=== PATIENT | female | born 1940 | race Caucasian/White ===

== ENCOUNTER 2017-04-07 12:18 | Inpatient (IN) | payer MEDICARE ==
[~2017-04-07] VITALS: Ht 160 cm; Wt 68.9 kg
--- NOTE | 2017-04-07 12:25 | NUR ---
AAOX3, BBRA FROM HOME FOR BILATERAL HIP/LEG PAIN S/P FALL WHILE TRYING TO TRANSFER SELF FROM BED TO WHEELCHAIR, H/O BONE CA. MORPHINE 12MG GIVEN BY EMS. SKIN IS WARM AND DRY. PLACED ON THE MONITOR. DR SOSA AT FOR EVAL.
[2017-04-07] MEDS ORDERED: HYDROMORPHONE 1 MG/1 ML DISP.SYRIN IV ONE (13:30)
[2017-04-07] MEDS ORDERED: HYDROMORPHONE 1 MG/1 ML DISP.SYRIN ONE ×2 (13:36→15:32)
--- NOTE | 2017-04-07 13:49 | NUR ---
CALLED KIMBERLY KEREN TARANGO WAS PAGED.
[2017-04-07 13:55] LABS: BASOPHILS % (AUTO) 0.2 % (0.0-2.0); EOSINOPHILS % (AUTO) 0.4 % (0.0-6.0); HEMATOCRIT 39 % (33-45); HEMOGLOBIN 13.3 g/dL (11.5-14.8); LYMPHOCYTES # (AUTO) 1.1 /CMM (0.8-4.8); LYMPHOCYTES % (AUTO) 9.3 % (20.0-44.0); MEAN CORPUSCULAR HEMOGLOBIN 28 PG (26.0-33.0); MEAN CORPUSCULAR HGB CONC 34 g/dl (31.0-36.0); MEAN CORPUSCULAR VOLUME 81 fL (82-100); MONOCYTES # (AUTO) 0.7 /CMM (0.1-1.30); NEUTROPHILS # (AUTO) 10.2 /CMM (1.8-8.9); NEUTROPHILS % (AUTO) 84.1 % (43.0-81.0); PLATELET COUNT (AUTO) 320 /CMM (150-450); RDW COEFFICIENT OF VARIATION 13.8 (11.5-15.0); RED BLOOD CELL COUNT(AUTO) 4.82 MIL/uL (4.0-5.2); WHITE BLOOD COUNT (AUTO) 12.1 K/uL (4.3-11.0)
--- NOTE | 2017-04-07 14:05 | NUR ---
CALLED KENMARE KEREN TARANGO WAS REPAGED.
[2017-04-07 14:07] LABS: CALCIUM, SERUM 10.2 mg/dL (8.5-10.1); CARBON DIOXIDE 25 mmol/L (21-32); CHLORIDE 99 mmol/L (98-107); CREATININE 0.9 mg/dL (0.6-1.3); GLUCOSE 132 mg/dL (74-106); POTASSIUM 3.6 mmol/L (3.5-5.1); SODIUM SERUM 135 mmol/L (136-145); UREA NITROGEN, BLOOD 19 mg/dL (7-18)
[2017-04-07 14:13] LABS: ALANINE AMINOTRANSFERASE 45 U/L (12-78); ALKALINE PHOSPHATASE 119 U/L (46-116); ASPARTATE AMINOTRANSFERASE 30 U/L (15-37); BILIRUBIN,DIRECT 0.1 mg/dL (0.0-0.2); BILIRUBIN,TOTAL 0.4 mg/dL (0.2-1.0); INR 0.96 (0.85-1.15); TOTAL PROTEIN, SERUM 7.9 g/dL (6.4-8.2)
[2017-04-07] MEDS ORDERED: SIMV20TA6 PO (14:17)
[2017-04-07] MEDS ORDERED: OXYC10TA49 PO (14:17)
[2017-04-07] MEDS ORDERED: GABA-532 PO (14:17)
[2017-04-07] MEDS ORDERED: MEGE400O4 PO (14:17)
[2017-04-07] MEDS ORDERED: DOCU100C36 PO (14:17)
[2017-04-07] MEDS ORDERED: FOLI1TAB16 PO (14:17)
[2017-04-07] MEDS ORDERED: TRIA1CAP6 PO (14:17)
[2017-04-07] MEDS ORDERED: SERT50TA PO (14:17)
--- NOTE | 2017-04-07 14:35 | NUR ---
CALLED Palette SOCK KNITTING MACHINE OPERATOR WAS PAGED.
[2017-04-07] MEDS ORDERED: HYDROMORPHONE INJ 0.5 MG/0.5 ML SYRINGE IV PRN (15:00)
--- NOTE | 2017-04-07 15:03 | NUR ---
PAGED CIVIL ENGINEERING INTERN ORTHO
--- NOTE | 2017-04-07 15:46 | NUR ---
REPORT GIVEN TO MAI FINN FOR ARLENE MS [id number]
[2017-04-07 16:00] VITALS: BP 157/97
--- NOTE | 2017-04-07 16:05 | NUR ---
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 A/O X4, APPEARS IN A LOT OF PAIN, UNABLE TO DO FULL BODY ASSESSMENT DUE TO PAIN. RLE SWELLING, LEFT HAND G20 PATENT AND INTACT, FLUSHES WELL. PLACE CALL LIGHT WITHIN REACH. NOTIFIED DR. CRYSTAL FERRARA. WILL MEDICATE PATIENT FOR PAIN.
[2017-04-07 16:15] VITALS: BP 157/97
[2017-04-07] MEDS ORDERED: IV NS 0.9% 1,000 ML IV PRN (16:23)
[2017-04-07] MEDS ORDERED: MAGNESIUM HYDROXIDE 30 ML UDC PO PRN (16:30)
[2017-04-07] MEDS ORDERED: ONDANSETRON HCL/PF 4 MG/2 ML VIAL IVP PRN (16:30)
[2017-04-07] MEDS ORDERED: Z GUARD REMEDY 2 OZ OINT TP PRN (16:30)
[2017-04-07] MEDS ORDERED: ZOLPIDEM TARTRATE 5 MG TABLET PO PRN (16:30)
[2017-04-07] MEDS ORDERED: ACETAMINOPHEN 325 MG TABLET PO PRN (16:30)
[2017-04-07] MEDS ORDERED: MAG HYDROX/AL HYDROX/SIMETH 30 ML UDC PO PRN (16:30)
[2017-04-07] MEDS ORDERED: HYDROCODONE/APAP 10/325MG 1 EA TABLET PO PRN (16:30)
[2017-04-07] MEDS: MORPHINE SULFATE INJ 4 MG/ML DISP.SYRIN IV PRN ×3 (16:47→22:30)
[2017-04-07] MEDS ORDERED: ENOXAPARIN SODIUM 40 MG/0.4 ML DISP.SYRIN SQ SCH (17:00)
[2017-04-07] MEDS: DOCUSATE SODIUM 100 MG CAPSULE PO SCH (17:24)
[2017-04-07] MEDS: MEGESTROL ACETATE SUSP 400 MG/10 ML UDC PO SCH (17:24)
[2017-04-07] MEDS: GABAPENTIN 100 MG CAPSULE PO SCH (17:24)
--- NOTE | 2017-04-07 18:30 | NUR ---
RECEIVED PHONE CALL FROM KEITH ORDERED TO PLACE PATIENT ON NPO MIDNIGHT AND CLEAR SURGERY FOR THE PROCEDURE IN AM SURGERY ORIF BILATERAL FEMUR FRACTURE. INFORMED PATIENT.
--- NOTE | 2017-04-07 19:28 | NUR ---
MS RN CLOSING NOTES PATIENT IN BED, A/O X4, ABLE TO SIT UPRIGHT FOR DINNER, TOLERATING SITTING POSITION AT THIS TIME. IVC IN RIGHT HAND G22 PATENT AND INTACT, IVF NS INFUSING AT 75ML/HR, ON OXYGEN AT 2L VIA NC, NO SOB. CALL LIGHT WITHIN REACH. PATIENT TO HAVE SURGERY IN AM-ORIF BILATERAL FEMUR FX, NPO MIDNIGHT, INFORMED PATIENT. EMERSON CATH INSERTION, PATIENT VERBALIZED UNDERSTANDING. WILL ENDORSE TO ONCOMING SHIFT RN.
--- NOTE | 2017-04-07 19:30 | NUR ---
RN OPENING NOTES PATIENT IS IN BED, ALERT AND ORIENTED X4. VS STABLE. NO SOB NOTED. RESPIRATIONS EVEN AND UNLABORED. PATIENT C/O PAIN 8/. IVC IN RIGHT HAND G22 PATENT AND INTACT, IVF NS INFUSING AT 75ML/HR, NO REDNESS OR INFILTRATION NOTED. ON OXYGEN AT 2L VIA NC. BED IN LOW AND LOCKED POSITION. CALL LIGHT WITHIN REACH. PATIENT TO HAVE SURGERY IN AM-ORIF BILATERAL FEMUR FX, NPO MIDNIGHT, INFORMED PATIENT. EMERSON CATH INSERTION. WILL CONTINUE TO MONITOR AND ASSESS DURING THE SHIFT.
[2017-04-07 20:00] VITALS: BP 118/80
[2017-04-07 20:32] VITALS: BP 118/80
[2017-04-07] MEDS ORDERED: SIMVASTATIN 20 MG TABLET PO SCH (22:00)
[2017-04-08] VITALS (7 sets, daily range): BP systolic 120–142; BP diastolic 63–74
[2017-04-08] MEDS: MORPHINE SULFATE INJ 4 MG/ML DISP.SYRIN IV PRN ×2 (01:45→04:48)
--- NOTE | 2017-04-08 07:10 | NUR ---
MS/RN CLOSING NOTE PATIENT IN BED AWAKE. ALERT AND ORIENTED X4. RESPIRATION REGULAR AND UNLABORED. DENIES SOB, PAIN AT THIS TIME. RIGHT HAND G22 PATENT AND INTACT. NPO SINCE MIDNIGHT. BED LOW AND LOCKED. SIDE RAIL UP X3. CALL LIGHT WITHIN REACH. WILL CONTINUE TO MONITOR.
--- NOTE | 2017-04-08 07:15 | NUR ---
RN CLOSING NOTES PATIENT IS IN BED, ALERT AND ORIENTED X4. VS STABLE. NO SOB NOTED. RESPIRATIONS EVEN AND UNLABORED. IVC IN RIGHT HAND G22 PATENT AND INTACT, IVF NS INFUSING AT 75ML/HR, NO REDNESS OR INFILTRATION NOTED. ON OXYGEN AT 2L VIA NC. EMERSON CATHETER IS IN PLACE, DRAINING CLEAR AND YELLOW URINE. PATIENT IS NPO SINCE MIDNIGHT DUE TO SURGERY ORIF. CONSENT SIGNED. ALL NEEDS ARE MET AND MEDICATIONS GIVEN PER MD ORDER. BED IN LOW AND LOCKED POSITION. CALL LIGHT WITHIN REACH. WILL ENDORSE TO RN DAY SHIFT FOR ARLENE.
[2017-04-08] MEDS ORDERED: MORPHINE SULFATE INJ 4 MG/ML DISP.SYRIN IM PRN (07:30)
[2017-04-08 08:45] LABS: BASOPHILS % (AUTO) 0.1 % (0.0-2.0); EOSINOPHILS % (AUTO) 0.1 % (0.0-6.0); HEMATOCRIT 34 % (33-45); HEMOGLOBIN 11.6 g/dL (11.5-14.8); LYMPHOCYTES # (AUTO) 0.8 /CMM (0.8-4.8); LYMPHOCYTES % (AUTO) 9.2 % (20.0-44.0); MEAN CORPUSCULAR HEMOGLOBIN 28 PG (26.0-33.0); MEAN CORPUSCULAR HGB CONC 34 g/dl (31.0-36.0); MEAN CORPUSCULAR VOLUME 82 fL (82-100); MONOCYTES # (AUTO) 0.6 /CMM (0.1-1.30); MONOCYTES % (AUTO) 6.5 % (2.0-12.0); NEUTROPHILS # (AUTO) 7.3 /CMM (1.8-8.9); NEUTROPHILS % (AUTO) 84.1 % (43.0-81.0); PLATELET COUNT (AUTO) 260 /CMM (150-450); RED BLOOD CELL COUNT(AUTO) 4.14 MIL/uL (4.0-5.2); WHITE BLOOD COUNT (AUTO) 8.7 K/uL (4.3-11.0)
[2017-04-08] MEDS: GABAPENTIN 100 MG CAPSULE PO SCH ×2 (09:00→17:43)
[2017-04-08] MEDS: DOCUSATE SODIUM 100 MG CAPSULE PO SCH (09:00)
[2017-04-08] MEDS ORDERED: TRIAMTERENE/HYDROCHLOROTHIAZID (37.5/25MG) 1 UDCAP PO SCH (09:00)
[2017-04-08] MEDS: SERTRALINE HCL 50 MG TABLET PO SCH (09:00)
[2017-04-08] MEDS: FOLIC ACID 1 MG TABLET PO SCH (09:00)
[2017-04-08] MEDS: MEGESTROL ACETATE SUSP 400 MG/10 ML UDC PO SCH ×2 (09:00→17:43)
[2017-04-08 09:01] LABS: CALCIUM, SERUM 9.3 mg/dL (8.5-10.1); CARBON DIOXIDE 25 mmol/L (21-32); CHLORIDE 101 mmol/L (98-107); CREATININE 0.6 mg/dL (0.6-1.3); GLUCOSE 109 mg/dL (74-106); MAGNESIUM 1.7 mg/dL (1.8-2.4); PHOSPHORUS 4.2 mg/dL (2.5-4.9); POTASSIUM 3.4 mmol/L (3.5-5.1); SODIUM SERUM 139 mmol/L (136-145); UREA NITROGEN, BLOOD 14 mg/dL (7-18)
[2017-04-08 09:12] LABS: CHOLESTEROL 139 mg/dL (<200); HDL CHOLESTEROL 53 mg/dL (40-60); LDL 74 mg/dL (0-99); THYROID STIMULATING HORMONE 1.758 uIU/mL (0.358-3.74); TRIGLYCERIDES 54 mg/dL (30-150)
[2017-04-08] MEDS: Potassium Chloride 20 MEQ in IV NS 0.9% 1,000 ML IV SCH ×2 (09:46→14:03)
[2017-04-08] MEDS ORDERED: BACITRACIN 50000 UNITS/VIAL ONE ×2 (10:20→12:49)
[2017-04-08] MEDS ORDERED: ROCURONIUM BROMIDE 50 MG/5 ML ONE (10:42)
[2017-04-08] MEDS ORDERED: SUCCINYLCHOLINE CHLORIDE 20 MG/ML VIAL ONE (10:42)
[2017-04-08] MEDS ORDERED: FENTANYL PF 100MCG/2ML AMPUL ONE (10:42)
[2017-04-08] MEDS ORDERED: HYDROMORPHONE INJ 0.5 MG/0.5 ML SYRINGE IV PRN (11:30)
[2017-04-08] MEDS ORDERED: DOCUSATE SODIUM 250 MG CAPSULE PO PRN (15:00)
[2017-04-08] MEDS ORDERED: SENNOSIDES 8.6 MG TABLET PO PRN (15:00)
[2017-04-08] MEDS ORDERED: HYDROCODONE/APAP 5/325MG 1 EACH TABLET PO PRN (15:00)
--- NOTE | 2017-04-08 15:30 | NUR ---
MS/RN NOTE THE PATIENT IS BACK FROM OR IN STABLE CONDITION. S/P ORIF BOTH FEMOR. RESPIRATION REGULAR AND UNLABORED. DENIES SOB, PAIN. IN NO APPARENT DISTRESS. THE DRESSING INTACT. PEDAL PULSES PRESENT. BED LOW AND LOCKED. SIDE RAILS UP X3. CALL LIGHT WITHIN REACH. WILL CONTINUE TO MONITOR.
--- NOTE | 2017-04-08 19:20 | NUR ---
MS/RN NOTES RECEIVED PT. LYING IN BED. AWAKE, ALERT AND ORIENTED X 3-4. BREATHING EVEN AND UNLABORED ON 2LPM O2 VIA NC. NO SOB, RESPIRATORY DISTRESS OR COMPLAINTS OF PAIN NOTED AT THIS TIME. PT. WITH LEFT FOREARM 22 GAUGE PERIPHERAL IV PRESENT, PATENT AND INTACT. PT. WITH EMERSON CATHETER PRESENT, PATENT AND INTACT DRAINING CLEAR YELLOW URINE. PT. WITH BILATERAL LOWER EXTREMITY POST OP DRESSINGS PRESENT, CLEAN, DRY AND INTACT. BED LOCKED AND IN LOWEST POSITION, SIDE RAILS UP X3, BED ALARM ON, CALL LIGHT WITHIN REACH, WILL CONTINUE TO MONITOR.
--- NOTE | 2017-04-08 19:30 | NUR ---
MS/RN CLOSING NOTE PATIENT IN BED AWAKE. A/O X4. DENIES SOB, DENIES PAIN. BREATHING EVEN AND UNLABORED. LEFT FOREARM G22 PATENT AND INTACT. IV INFUSING WITH NO S/S INFILTRATION. THE PATIENT IN STABLE CONDITION. BED LOW AND LOCKED SIDE RAILS UP X3. CALL LIGHT WITHIN REACH. WILL ENDORSE TO NIGH SHIFT.
[2017-04-08] MEDS: ANCEF 1 GM/50 ML D5W IV SCH ×2 (20:42)
--- NOTE | 2017-04-08 21:10 | NUR ---
MS/RN NOTES GAVE REPORT TO MAI MCCLAIN. TRANSPORTED PT. TO ROOM 205-2 VIA RNEY. PT. VITAL SIGNS STABLE. PT. HAS BAG OF MEDICATIONS PRESENT AT BEDSIDE AND PT. STATED SHE WILL HAVE HER FAMILY BRING THE MEDICATIONS HOME WITH THEM TOMORROW. SHE DOES NOT WANT THE MEDICATIONS TO BE PLACED IN THE PHARMACY. PT. IS LYING IN BED. AWAKE, ALERT AND ORIENTED X 3. BREATHING EVEN AND UNLABORED ON 2LPM O2 VIA NC. NO SOB, RESPIRATORY DISTRESS OR COMPLAINTS OF PAIN NOTED AT THIS TIME. PT. WITH LEFT FOREARM 22 GAUGE PERIPHERAL IV PRESENT, PATENT AND INTACT. PT. WITH EMERSON CATHETER PRESENT, PATENT AND INTACT DRAINING CLEAR YELLOW URINE. PT. WITH BILATERAL LOWER EXTREMITY POST OP DRESSINGS PRESENT, CLEAN, DRY AND INTACT. BED LOCKED AND IN LOWEST POSITION, SIDE RAILS UP X3, BED ALARM ON, CALL LIGHT WITHIN REACH, WILL ENDORSE TO MAI MCCLAIN FOR CONTINUITY OF CARE.
--- NOTE | 2017-04-08 21:15 | NUR ---
RN NOTES RECEIVED PT. FROM ANOTHER NURSE, A/OX3 WITH PERIOD OF CONFUSION, S/P BILATERAL ORIF, DRESSING DRY AND INTACT, F/C DRAINING TEA COLORED URINE, DENIES PAIN, NO SOB, CALL LIGHT WITHIN REACH, SIDERAILSUPX2, WILL CONTINUE TO MONITOR
[2017-04-09] MEDS: IV LR 1000 ML 1,000 ML IV PRN ×2 (01:19→17:16)
[2017-04-09] MEDS: ANCEF 1 GM/50 ML D5W IV SCH ×2 (03:38)
[2017-04-09 06:53] VITALS: BP 144/73
[2017-04-09 06:54] LABS: BASOPHILS % (AUTO) 0.3 % (0.0-2.0); EOSINOPHILS % (AUTO) 0.1 % (0.0-6.0); HEMATOCRIT 27 % (33-45); HEMOGLOBIN 9.1 g/dL (11.5-14.8); LYMPHOCYTES # (AUTO) 0.8 /CMM (0.8-4.8); LYMPHOCYTES % (AUTO) 10.7 % (20.0-44.0); MEAN CORPUSCULAR HEMOGLOBIN 28 PG (26.0-33.0); MEAN CORPUSCULAR HGB CONC 34 g/dl (31.0-36.0); MEAN CORPUSCULAR VOLUME 83 fL (82-100); MONOCYTES # (AUTO) 0.5 /CMM (0.1-1.30); NEUTROPHILS # (AUTO) 6.3 /CMM (1.8-8.9); NEUTROPHILS % (AUTO) 81.9 % (43.0-81.0); PLATELET COUNT (AUTO) 233 /CMM (150-450); RED BLOOD CELL COUNT(AUTO) 3.25 MIL/uL (4.0-5.2); WHITE BLOOD COUNT (AUTO) 7.7 K/uL (4.3-11.0)
--- NOTE | 2017-04-09 06:56 | NUR ---
RN NOTES SLEEPING BUT AROUSABLE, DRESSING DRY AND INTACT, CALL LIGHT WITHIN REACH, SIDERAILSUPX2 MORNING CARE RENDERED, PT. NEEDS ATTENDED
[2017-04-09 07:14] LABS: ALANINE AMINOTRANSFERASE 32 U/L (12-78); ALBUMIN 1.9 g/dL (3.4-5.0); ALKALINE PHOSPHATASE 71 U/L (46-116); ASPARTATE AMINOTRANSFERASE 40 U/L (15-37); BILIRUBIN,TOTAL 0.4 mg/dL (0.2-1.0); CALCIUM, SERUM 8.3 mg/dL (8.5-10.1); CARBON DIOXIDE 23 mmol/L (21-32); CHLORIDE 106 mmol/L (98-107); CREATININE 0.7 mg/dL (0.6-1.3); GLUCOSE 131 mg/dL (74-106); MAGNESIUM 1.6 mg/dL (1.8-2.4); PHOSPHORUS 2.9 mg/dL (2.5-4.9); POTASSIUM 3.4 mmol/L (3.5-5.1); SODIUM SERUM 137 mmol/L (136-145); TOTAL PROTEIN, SERUM 5.7 g/dL (6.4-8.2); UREA NITROGEN, BLOOD 13 mg/dL (7-18)
--- NOTE | 2017-04-09 08:00 | NUR ---
M/S RN - AM Assessment Patient awake, A/O x 4, reports moderate pain to op site, [place] given as ordered with relief, remain afebrile. Skin is intact except for bilateral hip/leg surgical incision S/P bilateral femur ORIF with dressing C/D/I. Skin on BLE is warm to touch, negative calf tenderness, negative for edema, sensation on both lower ext are intact. Renae catheter patent, intact, draining clear yellow urine output. Safety measures in place. All needs anticipated and met. Will continue with current plan of care.
[2017-04-09] MEDS: GABAPENTIN 100 MG CAPSULE PO SCH ×2 (08:26→17:14)
[2017-04-09] MEDS: MEGESTROL ACETATE SUSP 400 MG/10 ML UDC PO SCH ×2 (08:26→17:14)
[2017-04-09] MEDS: FOLIC ACID 1 MG TABLET PO SCH (08:26)
[2017-04-09] MEDS: HYDROCODONE/APAP 5/325MG 1 EACH TABLET PO PRN ×2 (08:26→17:15)
[2017-04-09] MEDS: SERTRALINE HCL 50 MG TABLET PO SCH (08:26)
[2017-04-09] MEDS: Magnesium 1GM/D5W 100ML PREMIX 100 ML IV SCH ×2 (10:55→12:08)
[2017-04-09] MEDS ORDERED: POTASSIUM CHLORIDE 20 MEQ TAB.PRT.SR PO SCH (11:00)
[2017-04-09] MEDS: HYDROMORPHONE 1 MG/1 ML DISP.SYRIN IV PRN (12:49)
[2017-04-09 16:00] VITALS: BP 126/67
[2017-04-09] MEDS: RIVAROXABAN 10 MG TABLET PO SCH (17:21)
--- NOTE | 2017-04-09 19:32 | NUR ---
M/S RN - Notes No significant change in condition noted. Patient endorsed to night RN accordingly.
--- NOTE | 2017-04-09 19:45 | NUR ---
MS RN NOTES RECEIVED ON BED A/O X4,APPEARS ANXIOUS,SWEATING,BLOOD SUGAR CHECK 169.HEART RATE 132 ON AUTOMATIC CUFF BP MACHINE,126 CHECKED MANUALLY.JOB PAIN AT THE MOMENT.AFEBRILE 98.1,BP 128/66,RR-24,93% ON 2 L/NC.CLEAR LUNGS ON AUSCULTATION.MD MICHEL WAS PAGE AT 2000,WITH NEW ORDER NOTED AND CARRIED OUT.
[2017-04-09 20:00] VITALS: BP 128/66
[2017-04-09] MEDS ORDERED: LORAZEPAM INJ 2 MG/ML VIAL IV ONE (20:00)
--- NOTE | 2017-04-09 20:14 | NUR ---
MS RN NOTES MEDICATED WITH ATIVAN 1MG IV X ONE DOSE ORDERED FOR ANXIETY
--- NOTE | 2017-04-09 21:45 | NUR ---
MS RN NOTES PATIENT WAS CHECKED SLEEPING WITH ABDOMINAL BREATHING NOTED.SHE WAS HOOKED UP TO TELE MONITOR AND ITS SINUS TACHYCARDIA,RATE OF 26 TO 133.
--- NOTE | 2017-04-09 21:56 | NUR ---
MS RN NOTES STAT EKG WAS ORDERED AND IT WAS SINUS TACH 125.MD WAS PAGE AWAITING TO CALL BACK.NURSING PIPE CLEANER NUHA WAS ALSO MADE AWARE OF PATIENT STATUS.
--- NOTE | 2017-04-09 22:30 | NUR ---
MS RN NOTES DR MADE AWARE OF PATIENT STATUS HAVING HEART RATE SINUS TACH,WITH ORDER TO START INCENTIVE SPIROMETRY WHILE AWAKE NOTED AND CARRIED OUT.
--- NOTE | 2017-04-10 02:00 | NUR ---
MS RN NOTED SLEEPING AT THIS TIME,CALM WITH RR OF 22.
[2017-04-10 06:51] LABS: BASOPHILS % (AUTO) 0.1 % (0.0-2.0); EOSINOPHILS # (AUTO) 0.1 /CMM (0.0-0.7); EOSINOPHILS % (AUTO) 1.1 % (0.0-6.0); HEMATOCRIT 24 % (33-45); HEMOGLOBIN 8.2 g/dL (11.5-14.8); LYMPHOCYTES # (AUTO) 1.1 /CMM (0.8-4.8); LYMPHOCYTES % (AUTO) 12.7 % (20.0-44.0); MEAN CORPUSCULAR HEMOGLOBIN 28 PG (26.0-33.0); MEAN CORPUSCULAR HGB CONC 34 g/dl (31.0-36.0); MEAN CORPUSCULAR VOLUME 82 fL (82-100); MONOCYTES # (AUTO) 0.6 /CMM (0.1-1.30); MONOCYTES % (AUTO) 6.6 % (2.0-12.0); NEUTROPHILS # (AUTO) 6.7 /CMM (1.8-8.9); NEUTROPHILS % (AUTO) 79.5 % (43.0-81.0); PLATELET COUNT (AUTO) 209 /CMM (150-450); RDW COEFFICIENT OF VARIATION 15.1 (11.5-15.0); RED BLOOD CELL COUNT(AUTO) 2.94 MIL/uL (4.0-5.2); WHITE BLOOD COUNT (AUTO) 8.4 K/uL (4.3-11.0)
[2017-04-10 07:07] LABS: TROPONIN I < 0.017 ng/mL (0.00-0.056)
[2017-04-10 07:10] LABS: ALANINE AMINOTRANSFERASE 25 U/L (12-78); ALBUMIN 1.7 g/dL (3.4-5.0); ALKALINE PHOSPHATASE 62 U/L (46-116); ASPARTATE AMINOTRANSFERASE 32 U/L (15-37); BILIRUBIN,TOTAL 0.3 mg/dL (0.2-1.0); CALCIUM, SERUM 8.5 mg/dL (8.5-10.1); CARBON DIOXIDE 24 mmol/L (21-32); CHLORIDE 106 mmol/L (98-107); CREATININE 0.6 mg/dL (0.6-1.3); GLUCOSE 106 mg/dL (74-106); MAGNESIUM 1.9 mg/dL (1.8-2.4); PHOSPHORUS 2.7 mg/dL (2.5-4.9); SODIUM SERUM 138 mmol/L (136-145); TOTAL PROTEIN, SERUM 5.6 g/dL (6.4-8.2); UREA NITROGEN, BLOOD 15 mg/dL (7-18)
--- NOTE | 2017-04-10 07:13 | NUR ---
MS RN NOTES SLEPT WELL.ANXIETY RESOLVED.OFFERED PAIN MEDICINE BUT REFUSED,SALINE LOCK FOR NOW,IVF DISCONTINUED BY MD.IN NO ACUTE DISTRESS.CALL LIGHT IN REACH,NEEDS ATTENDED.WILL ENDORSE TO DAY NURSE FOR ARLENE.
[2017-04-10 08:00] VITALS: BP 144/72
[2017-04-10] MEDS: MEGESTROL ACETATE SUSP 400 MG/10 ML UDC PO SCH ×2 (08:49→17:40)
[2017-04-10] MEDS: GABAPENTIN 100 MG CAPSULE PO SCH ×2 (08:50→17:40)
[2017-04-10] MEDS: SERTRALINE HCL 50 MG TABLET PO SCH (08:50)
[2017-04-10] MEDS: FOLIC ACID 1 MG TABLET PO SCH (08:50)
[2017-04-10 10:06] LABS: IRON, SERUM 15 ug/dl (50-175); TOTAL IRON BINDING CAPACITY 150 ug/dl (250-450)
[2017-04-10 10:26] LABS: FERRITIN 452 ng/mL (8-388)
[2017-04-10] MEDS: HYDROMORPHONE 1 MG/1 ML DISP.SYRIN IV PRN (10:56)
[2017-04-10] MEDS ORDERED: RIVA10TA PO (15:41)
[2017-04-10] MEDS ORDERED: SENN-167 PO (15:41)
[2017-04-10] MEDS ORDERED: HYDR1DIS2 IV (15:41)
[2017-04-10] MEDS ORDERED: HYDR-3326 PO ×2 (15:41)
[2017-04-10 16:00] VITALS: BP 128/69
[2017-04-10] MEDS: HYDROCODONE/APAP 5/325MG 1 EACH TABLET PO PRN (17:40)
[2017-04-10] MEDS: RIVAROXABAN 10 MG TABLET PO SCH (17:41)
--- NOTE | 2017-04-10 19:13 | NUR ---
M/S RN - Discharge Patient A/O x 3, denies pain, not in any form of distress, currently on 2 lpm via NC, remain afebrile. Noted with low hgb/hct level, no active bleeding seen, Md aware. Patient stable for discharge to [facility] ARU, report given to MAI Stanley [phone]. Bilateral hip/leg surgical incision with no signs of infection, kirby in place. Skin on BLE is warm to touch, negative calf tenderness, negative for edema, sensation on both lower ext are intact. Pictures taken on bilateral hip/leg surgical incision. Discharge papers given to ambulance crew and endorsed accordingly.
== END 2017-04-10 19:23 | DRG 481 ==
LOC: ER 12:20 → MED 15:25 → MEDSG2 04-08 21:05
PROC: 0QSB06Z Reposition Right Lower Femur with Intramedullary Internal Fixation Device, Open Approach (ICD-10-PCS; 2017-04-08)
PROC: 0QSC06Z Reposition Left Lower Femur with Intramedullary Internal Fixation Device, Open Approach (ICD-10-PCS; principal; 2017-04-08 11:45)
DX: M84.451A Pathological fracture, right femur, initial encounter for fracture (principal); C79.51 Secondary malignant neoplasm of bone; C34.90 Malignant neoplasm of unspecified part of unspecified bronchus or lung; E83.52 Hypercalcemia; E83.42 Hypomagnesemia; D64.9 Anemia, unspecified; M84.452A Pathological fracture, left femur, initial encounter for fracture; E87.6 Hypokalemia; R00.0 Tachycardia, unspecified; Z79.899 Other long term (current) drug therapy; W18.30XA Fall on same level, unspecified, initial encounter; Z88.0 Allergy status to penicillin; Z99.3 Dependence on wheelchair; Y93.89 Activity, other specified; Y92.009 Unspecified place in unspecified non-institutional (private) residence as the place of occurrence of the external cause
CPT/HCPCS: 36415; 71045-TC; 73502; 73521; 73552; 80048-TC; 80053-TC; 80061-TC; 80076-TC; 82728-TC; 82962-TC; 83540-TC; 83735-TC; 84100-TC; 84443-TC; 84484-TC; 85025-TC; 85730-TC; 86850-TC; 87081-TC; 93307-TC; 94799-TC; 97110-TC; 97116-TC; 97530-TC; A4606; A6209; A6402; C1713; J0330; J0690; J1170; J1650; J2060; J2270; J2405; J3010; J3475; J3480; J7030; J7060; J7120; Z7610

== ENCOUNTER 2017-07-08 11:30 | Outpatient (CLI) | payer MEDICARE ==
[~2017-07-08 11:30] MED LIST: DOCU100C36 PO; FOLI1TAB16 PO; GABA-532 PO; HYDR-3974 PO; HYDR1DIS2 IV; MEGE400O4 PO; OXYC10TA49 PO; RIVA10TA PO; SENN-167 PO; SERT50TA PO; SIMV20TA6 PO; TRIA1CAP6 PO
== END 2017-07-08 23:59 | disposition home or self-care (01) ==
LOC: ER 11:30
PROVIDERS: ATTEND Internal Medicine Hematology & Oncology
DX: Z45.2 Encounter for adjustment and management of vascular access device (principal); C34.92 Malignant neoplasm of unspecified part of left bronchus or lung; C34.91 Malignant neoplasm of unspecified part of right bronchus or lung; C79.51 Secondary malignant neoplasm of bone; C78.7 Secondary malignant neoplasm of liver and intrahepatic bile duct; E78.5 Hyperlipidemia, unspecified; I25.10 Atherosclerotic heart disease of native coronary artery without angina pectoris; J44.9 Chronic obstructive pulmonary disease, unspecified; F32.9 Major depressive disorder, single episode, unspecified; Z79.899 Other long term (current) drug therapy; Z87.891 Personal history of nicotine dependence; Z79.01 Long term (current) use of anticoagulants; Z79.891 Long term (current) use of opiate analgesic
CPT/HCPCS: 36569; 71045-TC; C1751; Z7610

== ENCOUNTER 2017-07-15 19:41 | Inpatient (IN) | payer MEDICARE ==
[~2017-07-15] VITALS: Ht 165.1 cm; Wt 64.9 kg
--- NOTE | 2017-07-15 19:45 | NUR ---
76 YO FEMALE BB RA FROM HOME. PATIENT IS NON VERBAL, RESPONSIVE TO TACTILE STIMULI, CALLED 911 FOR INCREASED WORK OF BREATHING. PATIENT IS NOTED TO HAVE LOW SPO2 IN THE LOW 80S, PATIENT PLACED ON CARDIAC MONITIOR, PATIENT IS NOTED TO BE TACHYCARDIC AT A RATE OF 120. PATIENT RESP RATE IS 16, NOTED DIMINISHED LUNGS ALL LOBES. PATIENT GOWNED, AWAITING ORDERS FORM PROVIDER, WILL CONTINUE TO MONITOR
--- NOTE | 2017-07-15 19:55 | NUR ---
RT AT BED SIDE FOR BREATHING TRERATMENT
[2017-07-15] MEDS ORDERED: ALBUTEROL FS 2.5 MG/3 ML VIAL.NEB ONE (19:58)
[2017-07-15] MEDS ORDERED: CEFEPIME 1 GM VIAL ONE (20:00)
[2017-07-15] MEDS ORDERED: CEFEPIME 1 GM in IV D5W 50 ML IV ONE (20:00)
[2017-07-15] MEDS ORDERED: VANCOMYCIN 1 GM in IV D5W 250 ML IV ONE (20:00)
[2017-07-15] MEDS ORDERED: ALBUTEROL FS 2.5 MG/3 ML VIAL.NEB CONTNEB ONE (20:00)
[2017-07-15] MEDS ORDERED: IV NS 0.9% 1,000 ML BAG IV ONE (20:00)
[2017-07-15] MEDS ORDERED: VANCOMYCIN 1 GM VIAL ONE (20:00)
--- NOTE | 2017-07-15 20:00 | NUR ---
NOTED RIGHT UPPER ARM PICC LINE. BLOOD SAMPLE OBTAIEND AND SENT TO LAB.
--- NOTE | 2017-07-15 20:03 | NUR ---
RADIOLOGY AT BED SIDE FOR CHEST XRAY
[2017-07-15 20:09] LABS: CALCIUM, SERUM 8.4 mg/dL (8.5-10.1); CARBON DIOXIDE 36 mmol/L (21-32); CHLORIDE 103 mmol/L (98-107); CREATININE 0.5 mg/dL (0.6-1.3); GLUCOSE 127 mg/dL (74-106); POTASSIUM 4.8 mmol/L (3.5-5.1); SODIUM SERUM 140 mmol/L (136-145); UREA NITROGEN, BLOOD 13 mg/dL (7-18)
--- NOTE | 2017-07-15 20:14 | NUR ---
MEDICATED PT ORDERED
[2017-07-15 20:15] LABS: ALANINE AMINOTRANSFERASE 25 U/L (12-78); ALBUMIN 1.8 g/dL (3.4-5.0); ALKALINE PHOSPHATASE 100 U/L (46-116); ASPARTATE AMINOTRANSFERASE 39 U/L (15-37); BILIRUBIN,TOTAL 0.2 mg/dL (0.2-1.0); TOTAL PROTEIN, SERUM 6.5 g/dL (6.4-8.2)
[2017-07-15 20:17] LABS: TROPONIN I < 0.017 ng/mL (0.00-0.056)
[2017-07-15 20:23] LABS: INR 0.99 (0.87-1.13)
[2017-07-15 20:39] LABS: EOSINOPHILS % (AUTO) 0.1 % (0.0-6.0); HEMATOCRIT 28 % (33-45); HEMOGLOBIN 8.7 g/dL (11.5-14.8); LYMPHOCYTES # (AUTO) 0.3 /CMM (0.8-4.8); LYMPHOCYTES % (AUTO) 4.3 % (20.0-44.0); MEAN CORPUSCULAR HGB CONC 31 g/dl (31.0-36.0); MEAN CORPUSCULAR VOLUME 73 fL (82-100); MONOCYTES # (AUTO) 0.3 /CMM (0.1-1.30); MONOCYTES % (AUTO) 5.2 % (2.0-12.0); NEUTROPHILS # (AUTO) 5.5 /CMM (1.8-8.9); NEUTROPHILS % (AUTO) 90.4 % (43.0-81.0); PLATELET COUNT (AUTO) 359 /CMM (150-450); RDW COEFFICIENT OF VARIATION 22.2 (11.5-15.0); RED BLOOD CELL COUNT(AUTO) 3.78 MIL/uL (4.0-5.2); WHITE BLOOD COUNT (AUTO) 6.1 K/uL (4.3-11.0)
--- NOTE | 2017-07-15 20:56 | NUR ---
CALLED NURSING COMPUTER VIDEO GAME DESIGNER AND REQUESTED A [facility] BED FOR THIS PT.
--- NOTE | 2017-07-15 21:23 | NUR ---
CALLED [facility] FOR PANEL CALL AND DR ROJAS WAS PAGED.
--- NOTE | 2017-07-15 21:28 | NUR ---
PT IS ASSIGNED TO [facility] RM#: [id number], PT IS DIAGNOSED WITH RESPIRATORY FAILURE, AND DR ROJAS IS THE ACCEPTING MD.
[2017-07-15] MEDS ORDERED: SENNOSIDES 8.6 MG TABLET PO PRN (21:30)
--- NOTE | 2017-07-15 21:36 | NUR ---
MAI JAMES TOOK REPORT FOR ARLENE
--- NOTE | 2017-07-15 21:50 | NUR ---
TRANSPORTED PT TO [facility] BED WITHOUT INCIDENT
[2017-07-15 22:00] VITALS: BP 119/64
[2017-07-15] MEDS ORDERED: HYDROMORPHONE INJ 2 MG/ML DISP.SYRIN IV PRN (22:00)
[2017-07-15] MEDS ORDERED: ONDANSETRON HCL/PF 4 MG/2 ML VIAL IVP PRN (22:00)
[2017-07-15] MEDS ORDERED: MAGNESIUM HYDROXIDE 30 ML UDC PO PRN (22:00)
[2017-07-15] MEDS ORDERED: IPRATROPIUM NEB FS 0.5 MG/2.5 ML AMPUL.NEB NEB PRN (22:00)
[2017-07-15] MEDS ORDERED: ALBUTEROL FS 2.5 MG/0.5 ML VIAL.NEB NEB PRN (22:00)
[2017-07-15] MEDS ORDERED: MAG HYDROX/AL HYDROX/SIMETH 30 ML UDC PO PRN (22:00)
[2017-07-15] MEDS: SIMVASTATIN 20 MG TABLET PO SCH (22:00)
[2017-07-15] MEDS ORDERED: ACETAMINOPHEN 325 MG TABLET PO PRN (22:00)
[2017-07-15] MEDS ORDERED: ZOLPIDEM TARTRATE 5 MG TABLET PO PRN (22:00)
[2017-07-15] MEDS ORDERED: HYDROCODONE/APAP 5/325MG 1 EACH TABLET PO PRN (22:00)
[2017-07-15] MEDS ORDERED: HYDROCODONE/APAP 10/325MG 1 EA TABLET PO PRN (22:00)
[2017-07-15] MEDS ORDERED: Z GUARD REMEDY 2 OZ OINT TP PRN (22:00)
[2017-07-15] MEDS ORDERED: LEVOFLOXACIN 750 MG /D5W 150ML 150 ML IV ONE (22:28)
--- NOTE | 2017-07-15 22:30 | NUR ---
[facility]RA/ADMISSION NOTES: ADMITTED AN 76 F FROM [facility]IA [facility] W/ RHONDA ACCOMPANYING HER. PT. TRANSPORTED TO BED 105. ON TELE MONITOR W/ ST @ 113. W/ O2 @ 10 LPM VIA FACE MASK SAT. 98%. PT. IS NON VERBAL AND DNR/DNI. NO FACIAL GRIMACES OR MOANING NOTED. RESPONSIVE TO PAINFUL STIMULI. W/ JOÃO PICC DOUBLE LUMEN PATENT AND INTACT W/ NO S/S OF INFECTION/INFILTRATION NOTED. S/P CHEMO ON 07/14/2017 PER RHONDA. CALL LIGHT W/ REACH. WILL CONTINUE TO MONITOR.
--- NOTE | 2017-07-15 22:40 | NUR ---
ZEHRA/RN NOTES: PT. WENT TO CT OF CHEST W/O CONTRAST. WENT IN STABLE CONDITION.
[2017-07-15 23:17] LABS: ABG BASE EXCESS 2.3 mmol/L; ABG OXYGEN SATURATION 97.3 % (92.0-98.5); ABG PCO2 97.6 mmHg (35.0-45.0); ABG PH 7.145 (7.350-7.450); ABG PO2 128.5 mmHg (75.0-100.0); AaDO2 191.9 mmHg; COHb 0.3 % (0.5-1.5); MetHb 0.3 % (0.0-1.5); O2Hb 96.7 % (94.0-97.0); SITE, ABG Right Radial
--- NOTE | 2017-07-15 23:50 | NUR ---
RT NOTE: PER MD ORDER POST ABG RESULTS PT WAS PUT ON BIPAP 15/5 RATE 20 45%. MEPILEX IS ON TO PROTECT THE FACE. PT IS BREATHING AT 20 BREATHS PER MIN. PT IS ASLEEP AT THIS TIME. WILL CONT TO MONITOR PATIENT.
[2017-07-15] MEDS: LEVOFLOXACIN 750 MG /D5W 150ML 750 MG in PREMIX 1 EA IV SCH (23:54)
[2017-07-16] VITALS (10 sets, daily range): BP systolic 94–146; BP diastolic 45–74
[2017-07-16 03:19] LABS: ABG BASE EXCESS 3.1 mmol/L; ABG OXYGEN SATURATION 96.6 % (92.0-98.5); ABG PCO2 61.3 mmHg (35.0-45.0); ABG PH 7.311 (7.350-7.450); ABG PO2 97.2 mmHg (75.0-100.0); AaDO2 117.5 mmHg; COHb 0.3 % (0.5-1.5); MetHb 0.4 % (0.0-1.5); O2Hb 95.9 % (94.0-97.0); SITE, ABG Right Radial; VENT MODE, BG Bipap 15/5 40% RR20
[2017-07-16] MEDS: IV NS 0.9% 1,000 ML BAG IV PRN ×2 (03:28→18:18)
[2017-07-16 06:12] LABS: HEMATOCRIT 24 % (33-45); HEMOGLOBIN 7.6 g/dL (11.5-14.8); LYMPHOCYTES # (AUTO) 0.2 /CMM (0.8-4.8); LYMPHOCYTES % (AUTO) 3.1 % (20.0-44.0); MEAN CORPUSCULAR HGB CONC 31 g/dl (31.0-36.0); MEAN CORPUSCULAR VOLUME 74 fL (82-100); MONOCYTES # (AUTO) 0.4 /CMM (0.1-1.30); MONOCYTES % (AUTO) 6.6 % (2.0-12.0); NEUTROPHILS # (AUTO) 5.1 /CMM (1.8-8.9); NEUTROPHILS % (AUTO) 90.3 % (43.0-81.0); PLATELET COUNT (AUTO) 272 /CMM (150-450); RDW COEFFICIENT OF VARIATION 22.4 (11.5-15.0); RED BLOOD CELL COUNT(AUTO) 3.32 MIL/uL (4.0-5.2); WHITE BLOOD COUNT (AUTO) 5.7 K/uL (4.3-11.0)
[2017-07-16 06:36] LABS: CHOLESTEROL 182 mg/dL (<200); HDL CHOLESTEROL 56 mg/dL (40-60); LDL 96 mg/dL (0-99); THYROID STIMULATING HORMONE 5.205 uIU/mL (0.358-3.74); TRIGLYCERIDES 186 mg/dL (30-150)
[2017-07-16 06:43] LABS: CALCIUM, SERUM 7.5 mg/dL (8.5-10.1); CARBON DIOXIDE 30 mmol/L (21-32); CHLORIDE 104 mmol/L (98-107); CREATININE 0.4 mg/dL (0.6-1.3); GLUCOSE 87 mg/dL (74-106); MAGNESIUM 1.8 mg/dL (1.8-2.4); PHOSPHORUS 2.2 mg/dL (2.5-4.9); POTASSIUM 4.5 mmol/L (3.5-5.1); SODIUM SERUM 141 mmol/L (136-145); UREA NITROGEN, BLOOD 13 mg/dL (7-18)
[2017-07-16] MEDS ORDERED: FEE PK DOSING 1 MIN EA MC ONE (06:49)
--- NOTE | 2017-07-16 07:45 | NUR ---
RN/ [facility]RA NOTES: PT. STILL ON BIPAP AT NIGHT. AT BEDSIDE. REPORT GIVEN TO AM NURSE FOR ARLENE.
--- NOTE | 2017-07-16 07:55 | NUR ---
ZEHRA RN NOTE PATIENT IN BED ,ALL NEEDS ATTENDED PATIENT MORE ALERT AT THIS TIME ,OPEN EYES , FAMILY AT BEDSIDE , RT AT BEDSIDE ,PATIENT ON BIPAP SETTING ORDERED , ON IVF ORDERED RT UPPER ARM PICC LINE BED IN LOWEST AND LOCKED POSITION, WILL CONT TO MONITOR CLOSELY
[2017-07-16] MEDS ORDERED: VANCOMYCIN 0.75 GM in IV NS 0.9% 250 ML IV SCH (08:00)
[2017-07-16 08:01] LABS: BAND % (MANUAL) 3 % (0.0-5.0); LYMPHOCYTES % (MANUAL) 5 % (16-48); MONOCYTES % (MANUAL) 8 % (0-11.0); NEUTROPHILS % (MANUAL) 84 (42-76)
[2017-07-16] MEDS: TRIAMTERENE/HYDROCHLOROTHIAZID (37.5/25MG) 1 UDCAP PO SCH (08:32)
[2017-07-16] MEDS: DOCUSATE SODIUM 100 MG CAPSULE PO SCH ×2 (08:32→16:41)
[2017-07-16] MEDS: MEGESTROL ACETATE SUSP 400 MG/10 ML UDC PO SCH ×2 (08:33→16:43)
[2017-07-16] MEDS: SERTRALINE HCL 50 MG TABLET PO SCH (08:33)
[2017-07-16] MEDS: FOLIC ACID 1 MG TABLET PO SCH (08:33)
[2017-07-16] MEDS: GABAPENTIN 100 MG CAPSULE PO SCH ×2 (08:33→16:40)
--- NOTE | 2017-07-16 09:30 | NUR ---
ZEHRA RN NOTE SEEN BY DR GODINEZ AWARE THAT RT SIDE PLEUR VAC IN PLACE , ALSO AWARE THAT ABG DONE NOTIFIED RESULT, OK TO PLACE VENTURI MASK NEEDED, RT AT BEDSIDE WILL F\U
[2017-07-16 09:42] LABS: ABG BASE EXCESS 1.6 mmol/L; ABG OXYGEN SATURATION 91.8 % (92.0-98.5); ABG PH 7.365 (7.350-7.450); ABG PO2 66.3 mmHg (75.0-100.0); AaDO2 75.5 mmHg; COHb 0.3 % (0.5-1.5); MetHb 0.8 % (0.0-1.5); O2Hb 90.8 % (94.0-97.0); SITE, ABG Right Radial; VENT MODE, BG NASAL CANNULA
[2017-07-16] MEDS: VANCOMYCIN 1 GM in IV D5W 500 ML IV SCH (11:50)
[2017-07-16] MEDS ORDERED: Sodium Phosphate 15 MMOL in IV D5W 250 ML IV ONE (12:00)
--- NOTE | 2017-07-16 12:18 | NUR ---
ZEHRA RN NOTE ST AT BEDSIDE SWALLOW EVAL DONE, WILL F]U
[2017-07-16] MEDS: ENSURE ENLIVE 237 ML LIQUID (VANILLA) PO SCH ×2 (14:28→16:42)
[2017-07-16] MEDS: methylPREDNISolone SOD SUCC 125 MG/2ML VIAL IV SCH ×2 (14:32→21:05)
[2017-07-16] MEDS: IPRATROPIUM NEB FS 0.5 MG/2.5 ML AMPUL.NEB NEB SCH ×2 (15:27→19:49)
[2017-07-16] MEDS: ALBUTEROL FS 2.5 MG/0.5 ML VIAL.NEB NEB SCH ×2 (15:27→19:49)
[2017-07-16] MEDS ORDERED: LORAZEPAM INJ 2 MG/ML VIAL IV PRN (15:30)
--- NOTE | 2017-07-16 15:50 | NUR ---
ZEHRA RN NOTE ON BREATHING TX BY RT
[2017-07-16] MEDS ORDERED: RIVAROXABAN 10 MG TABLET PO SCH (17:00)
--- NOTE | 2017-07-16 18:28 | NUR ---
ZEHRA RN NOTE CONT O2 VIA VENTURI MASK 35%, NOT IN DISTRESS, KEEP CLEAN DRY FAMILY AT BEDSIDE SAT 94%
--- NOTE | 2017-07-16 19:30 | NUR ---
ZEHRA/RN NOTES: RECEIVED PT. IN BED W/ HOB ELEVATED W/ VENTURI MASK 9LPM W/ 35%. ON TELE MONITOR W/ ST 116. HAS A PICC LINE ON JOÃO W/ DRESSING INTACT AND PATENT W/ NO S/S OF INFECTION/INFILTRATION NOTED. A/O X 1-2 W/ PERIODS OF CONFUSION AND FORGETFULNESS. W/ IVF PER ORDER. CALL LIGHT W/ REACH. BIPAP AT [facility]. WILL CONTINUE TO MONITOR.
[2017-07-16] MEDS: LEVOFLOXACIN 750 MG /D5W 150ML 750 MG in PREMIX 1 EA IV SCH (21:05)
[2017-07-16] MEDS: SIMVASTATIN 20 MG TABLET PO SCH (21:05)
[2017-07-17] VITALS (9 sets, daily range): BP systolic 103–125; BP diastolic 59–68
[2017-07-17] MEDS: IPRATROPIUM NEB FS 0.5 MG/2.5 ML AMPUL.NEB NEB SCH ×3 (01:36→13:35)
[2017-07-17] MEDS: ALBUTEROL FS 2.5 MG/0.5 ML VIAL.NEB NEB SCH ×3 (01:36→13:35)
[2017-07-17] MEDS: methylPREDNISolone SOD SUCC 125 MG/2ML VIAL IV SCH ×2 (05:07→12:19)
[2017-07-17] MEDS: VANCOMYCIN 1 GM in IV D5W 500 ML IV SCH (05:07)
[2017-07-17] MEDS: IV NS 0.9% 1,000 ML BAG IV PRN (06:02)
[2017-07-17 06:35] LABS: HEMATOCRIT 24 % (33-45); HEMOGLOBIN 7.5 g/dL (11.5-14.8); LYMPHOCYTES # (AUTO) 0.1 /CMM (0.8-4.8); LYMPHOCYTES % (AUTO) 2.8 % (20.0-44.0); MEAN CORPUSCULAR HGB CONC 32 g/dl (31.0-36.0); MEAN CORPUSCULAR VOLUME 73 fL (82-100); MONOCYTES % (AUTO) 0.6 % (2.0-12.0); NEUTROPHILS # (AUTO) 4.9 /CMM (1.8-8.9); NEUTROPHILS % (AUTO) 96.6 % (43.0-81.0); PLATELET COUNT (AUTO) 250 /CMM (150-450); RDW COEFFICIENT OF VARIATION 21.9 (11.5-15.0); RED BLOOD CELL COUNT(AUTO) 3.26 MIL/uL (4.0-5.2)
[2017-07-17 07:04] LABS: CALCIUM, SERUM 7.2 mg/dL (8.5-10.1); CARBON DIOXIDE 30 mmol/L (21-32); CHLORIDE 103 mmol/L (98-107); CREATININE 0.4 mg/dL (0.6-1.3); GLUCOSE 106 mg/dL (74-106); MAGNESIUM 1.9 mg/dL (1.8-2.4); PHOSPHORUS 2.1 mg/dL (2.5-4.9); POTASSIUM 4.4 mmol/L (3.5-5.1); SODIUM SERUM 140 mmol/L (136-145); UREA NITROGEN, BLOOD 9 mg/dL (7-18)
--- NOTE | 2017-07-17 07:30 | NUR ---
ZEHRA RN INITIAL NOTES RECEIVED PATIENT AWAKE IN BED, AO1X2, ON BIPAP AT THIS TIME, SATURATING WELL, ON TELE MONITORING ST 104, PATIENT IN DIAPER, IV JOÃO PICC LINE, CLEAN AND PATENT INFUSING NS @75 ML/HR, BED IN LOW AND LOCKED POSITION, CALL LIGHT WITHIN REACH, WILL CONTINUE TO MONITOR.
--- NOTE | 2017-07-17 07:39 | NUR ---
ZEHRA/RN NOTES: NO ACUTE CHANGES NOTED DURING THIS SHIFT. REPORT GIVEN TO AM NURSE FOR ARLENE.
[2017-07-17] MEDS: GABAPENTIN 100 MG CAPSULE PO SCH (08:25)
[2017-07-17] MEDS: TRIAMTERENE/HYDROCHLOROTHIAZID (37.5/25MG) 1 UDCAP PO SCH (08:25)
[2017-07-17] MEDS: SERTRALINE HCL 50 MG TABLET PO SCH (08:25)
[2017-07-17] MEDS: DOCUSATE SODIUM 100 MG CAPSULE PO SCH (08:25)
[2017-07-17] MEDS: FOLIC ACID 1 MG TABLET PO SCH (08:25)
[2017-07-17] MEDS: MEGESTROL ACETATE SUSP 400 MG/10 ML UDC PO SCH (08:25)
[2017-07-17] MEDS: ENSURE ENLIVE 237 ML LIQUID (VANILLA) PO SCH ×2 (08:28→12:19)
[2017-07-17] MEDS ORDERED: Sodium Phosphate 7.5 MMOL in IV D5W 100 ML IV SCH (11:30)
[2017-07-17] MEDS ORDERED: Sodium Phosphate 15 MMOL in IV D5W 250 ML IV ONE (11:30)
--- NOTE | 2017-07-17 14:00 | NUR ---
ZEHRA RN NOTES PATIENT AND DISCUSSING WITH DR. ROONEY ABOUT END OF LIFE AND COMFORT CARE MEASURES. FAMILY WOULD LIKE TO START COMFORT MEASURES AFTER PATIENT SAYS GOODBYE TO HER FAMILY AND FRIENDS.
[2017-07-17] MEDS ORDERED: LORAZEPAM INJ 2 MG/ML VIAL IV PRN (15:30)
[2017-07-17] MEDS ORDERED: KEY,NONCONTROL,TO KEEP IN PYXI 1 EA MC ONE (16:36)
--- NOTE | 2017-07-17 17:00 | NUR ---
CARBONIZER TESTER NOTES PATIENT IS STARTED ON MORPHINE DRIP 2MG/HR, ATIVAN DOSE GIVEN WELL PER DR ROONEY ORDERS, IVP MORPHINE GIVEN INITIAL DOSE. PATIENT MONITORED CLOSELY FOR DISCOMFORT.
[2017-07-17] MEDS ORDERED: MORPHINE SULFATE INJ 4 MG/ML DISP.SYRIN IV ONE (17:30)
[2017-07-17] MEDS ORDERED: MORPHINE SULFATE INJ 2 MG/ML DISP.SYRIN IV ONE (17:30)
--- NOTE | 2017-07-17 18:00 | NUR ---
RN INVASIVE NOTES MORPHINE DRIP INCREASED TO 4MG/HR
--- NOTE | 2017-07-17 18:57 | NUR ---
METAL FINISHER NOTES PATIENT RESTING IN BED, ON MORPHINE DRIP, APPEARS COMFORTABLE, SLEEPING, FAMILY MEMBERS AT BEDSIDE. WILL ENDORSE TO ROCK CUTTER FOR CONTINUITY OF CARE.
--- NOTE | 2017-07-17 19:15 | NUR ---
RN M/S NOTE PATIENT RECEIVED RESTING COMFORTABLY IN BED, LETHARGIC, NO S/SX OF DISTRESS NOTED. AT BEDSIDE. JOÃO PICC LINE WITH MORPHINE 4MG/HR INFUSING, SITE CDI, PATENT, FLUSHES WELL. PATIENT KEPT RESTING COMFORTABLY, WILL CONTINUE TO MONITOR. SAFETY MAINTAINED AT ALL TIMES, BED IN LOW LOCKED POSITION, CALL LIGHT WITHIN REACH.
--- NOTE | 2017-07-17 21:27 | NUR ---
RN M/S NOTE PATIENT SWITCHED FROM VENTURI MASK TO 1L O2 VIA NC ORDERED, RR 10
--- NOTE | 2017-07-17 23:00 | NUR ---
RN M/S NOTE PATIENT ON MORPHINE 4MG/ML, TOLERATING 1L O2 VIA NC, HEALTH CARE AGENT AND FRIENDS AT BEDSIDE. COMFORT MEASURES OBSERVED.
--- NOTE | 2017-07-18 00:55 | NUR ---
RN M/S NOTE PATIENT CODE STATUS WAS COMFORT MEASURES AND ON MORPHINE DRIP 4MG/HR TO JOÃO PICC LINE. PATIENT'S PRONOUNCED 07/18/17 AT 0055. BILATERAL PUPILS FIXED, DILATED AND NON REACTIVE TO LIGHT. NO RESPONSE TO PAIN STIMULI. RESPIRATIONS ABSENT. NO PULSE UPON PALPATION ON CAROTID AREA, NO HEART SOUNDS HEARD UPON AUSCULTATION. NO BP READING. HEALTH CARE AGENT RHONDA AT BEDSIDE. ASSISTED WITH GRIEVING PROCESS. PERFORMED POST MORTEM CARE, LABELED PATIENT WELL. PICC LINE REMOVED. [facility] CALLED ([facility]). DR ROJAS MADE AWARE, BAND STRAIGHTENER AMBAR SALEH NOTIFIED. NO BELONGINGS NOTED. AWAITING NOW FOR MORTUARY INFORMATION. BODY TRANSFERRED TO [facility].
[2017-07-18] MEDS ORDERED: KEY,NONCONTROL,TO KEEP IN PYXI 1 EA MC ONE (02:02)
== END 2017-07-18 00:45 | disposition expired | DRG 193 ==
LOC: ER 19:43 → TELE-TD 21:58 → MEDSG1 07-17 16:49
PROC: 5A09457 Assistance with Respiratory Ventilation, 24-96 Consecutive Hours, Continuous Positive Airway Pressure (ICD-10-PCS; principal; 2017-07-15)
DX: J15.9 Unspecified bacterial pneumonia (principal); J96.01 Acute respiratory failure with hypoxia; E43 Unspecified severe protein-calorie malnutrition; J96.02 Acute respiratory failure with hypercapnia; Z51.5 Encounter for palliative care; C79.51 Secondary malignant neoplasm of bone; C78.7 Secondary malignant neoplasm of liver and intrahepatic bile duct; J90 Pleural effusion, not elsewhere classified; E83.39 Other disorders of phosphorus metabolism; C34.90 Malignant neoplasm of unspecified part of unspecified bronchus or lung; J44.0 Chronic obstructive pulmonary disease with (acute) lower respiratory infection; I25.10 Atherosclerotic heart disease of native coronary artery without angina pectoris; Z87.891 Personal history of nicotine dependence; Z79.01 Long term (current) use of anticoagulants; E88.09 Other disorders of plasma-protein metabolism, not elsewhere classified; D50.9 Iron deficiency anemia, unspecified; E83.51 Hypocalcemia; Z68.23 Body mass index [BMI] 23.0-23.9, adult; Z66 Do not resuscitate; E78.5 Hyperlipidemia, unspecified
CPT/HCPCS: 36415; 36600; 71045-TC; 71250-TC; 80048-TC; 80061-TC; 80076-TC; 82803-TC; 83605-TC; 83735-TC; 84100-TC; 84443-TC; 84484-TC; 85025-TC; 85730-TC; 87040-TC; 87081-TC; 92526; 92611-TC; 94760-TC; 94799-TC; A4216; A4606; A9563; J0692; J1956; J2060; J2270; J2274; J2930; J3370; J7030; J7050; J7060; Z7610